=== PATIENT | male | born 1975 | race Caucasian/White ===

== ENCOUNTER 2017-12-15 15:10 | Emergency (ER) | payer BC, OTHER ==
[2017-12-15 15:22] VITALS: BP 139/89; PULSE 74; TEMP 97.6; BMI 29.8
--- NOTE | 2017-12-15 17:06 | PDOC ---
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 Patient states was on duty last night when his right hand twisted backwards causing him discomfort. Patient states was unable to get an x-ray done at his doctor since the machine was down and so decided to come to the ER for further evaluation. Patient now complaining of pain to the inner aspect of right wrist without weakness, radiation of pain, or previous injury to the affected area. Timing/Duration: other Severity: mild Associated Symptoms: reports: denies symptoms Past History - Travel Traveled outside of the country in the last 30 days: No - Past Medical History Allergies/Adverse Reactions: Allergies Allergy/AdvReac Type Severity Reaction Status Date / Time No Known Allergies Allergy Verified 12/15/17 15:19 Home Medications: Ambulatory Orders NK [No Known Home Medication] 12/15/17 COPD: No - Suicide/Smoking/Psychosocial Hx Smoking History: Never smoked Have you smoked in the past 12 months: No Information on smoking cessation initiated: No Hx Alcohol Use: No Drug/Substance Use Hx: No Substance Use Type: None Patient Lives Alone: No Lives with/in: spouse/SO Review of Systems - Review of Systems Able to Perform ROS?: Yes Constitutional: No: Symptoms Reported Musculoskeletal: Yes: Joint Pain (rt wrist). No: Joint Swelling Integumentary: No: Symptoms Reported Neurological: No: Symptoms reported *Physical Exam - Vital Signs Last Vital Signs Temp Pulse Resp BP Pulse Ox 97.6 F 74 18 139/89 100 12/15/17 15:19 12/15/17 15:19 12/15/17 15:19 12/15/17 15:19 12/15/17 15:19 - Physical Exam General Appearance: Yes: Nourished, Appropriately Dressed. No: Apparent Distress HEENT: positive: EOMI, HEBERT, TMs Normal, Pharynx Normal. 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 Patient ordered for right wrist x-ray. 12/15/17 17:42 X-ray shows no signs of dislocation, fracture subluxation. Patient be discharged home with recommendations to use brace or Paulo wrap or the brace during the day but remove at night *DC/Admit/Observation/Transfer Diagnosis at time of Disposition: Injury of wrist, right - Discharge Dispostion Disposition: HOME Condition at time of disposition: Good - Referrals Referrals: Perry Salguero MD [Staff Physician] - - Patient Instructions Printed Discharge Instructions: DI for Wrist Sprain Additional Instructions: You are discharged home with recommendations to use brace or Paulo wrap or the brace during the day but remove at night. Follow-up with referred orthopedist if pain continues greater than 5 days. - Post Discharge Activity
== END 2017-12-15 17:50 | disposition home or self-care (01) ==
LOC: JERFT 15:10
DX: S63.502A Unspecified sprain of left wrist, initial encounter (principal); W01.0XXA Fall on same level from slipping, tripping and stumbling without subsequent striking against object, initial encounter; Y93.89 Activity, other specified; Y92.89 Other specified places as the place of occurrence of the external cause; Y99.0 Civilian activity done for income or pay
CPT/HCPCS: 73110-TC-RT; 99281-25

== ENCOUNTER 2020-12-04 08:09 | Emergency (ER) | payer BC, OTHER ==
[2020-12-04 08:54] VITALS: TEMP 98.2; BMI 29.8
[2020-12-04] MEDS ORDERED: SODIUM CHLORIDE 1,000 ML IV STA (09:32)
[2020-12-04] MEDS ORDERED: ACETAMINOPHEN 1000 MG/100 ML BAG IVPB ONE (09:32)
[2020-12-04] MEDS ORDERED: ACETAMINOPHEN INJECTION 100 ML IVPB ONE (09:43)
[2020-12-04 10:21] LABS: BASO % 0.7 % (0-2.0); HEMOGLOBIN 15.4 GM/dL (11.7-16.9); LYMPH % 25.2 % (8-40); MCH 27.9 pg (25.7-33.7); MCHC 33.5 g/dl (32.0-35.9); MEAN CELL VOLUME 83.1 fl (80-96); MEAN PLT VOLUME 9.2 fl (7.5-11.1); MONO % 7.9 % (3.8-10.2); NEUT % 66.2 % (42.8-82.8); PLATELET COUNT 203 K/MM3 (134-434); RBC 5.54 M/mm3 (4.00-5.60); RDW 13.9 % (11.9-15.9); WHITE BLOOD COUNT 6.3 K/mm3 (4.0-10.0)
[2020-12-04 10:51] LABS: ALBUMIN 4.1 g/dl (3.4-5.0); BLOOD UREA NITROGEN 17.9 mg/dL (7-18); CALCIUM 8.8 mg/dL (8.5-10.1)
[2020-12-04 10:55] LABS: CREATININE 1.4 mg/dL (0.55-1.3)
[2020-12-04 10:56] LABS: BILIRUBIN,TOTAL 0.4 mg/dL (0.2-1); TOT PROT 8.3 g/dl (6.4-8.2)
[2020-12-04 12:00] VITALS: BP 100/62; PULSE 67
== END 2020-12-04 12:43 | disposition home or self-care (01) ==
LOC: JER 08:09
PROC: 3E0333Z Introduction of Anti-inflammatory into Peripheral Vein, Percutaneous Approach (ICD-10-PCS; principal; 2020-12-04)
PROC: 3E0337Z Introduction of Electrolytic and Water Balance Substance into Peripheral Vein, Percutaneous Approach (ICD-10-PCS; 2020-12-04)
DX: U07.1 COVID-19 (principal); R19.7 Diarrhea, unspecified
CPT/HCPCS: 36415; 80053; 85025; 87426; 99284-25; J0131

== ENCOUNTER 2020-12-09 07:24 | Emergency (ER) | payer BC, OTHER ==
[2020-12-09 07:31] VITALS: BP 124/86; PULSE 88; TEMP 98; BMI 29.8
== END 2020-12-09 08:33 | disposition home or self-care (01) ==
LOC: JER 07:24
DX: U07.1 COVID-19 (principal)
CPT/HCPCS: 71046-TC-FY; 99283-25

== ENCOUNTER 2021-11-09 12:24 | Emergency (ER) | payer BC, OTHER ==
[2021-11-09 12:45] VITALS: BMI 29.8
[2021-11-09] MEDS ORDERED: ACETAMINOPHEN 1000 MG/100 ML VIAL IVPB ONE (13:12)
[2021-11-09] MEDS ORDERED: SODIUM CHLORIDE 0.9% 500 ML INFUS.BAG IV ONE (13:12)
[2021-11-09] MEDS ORDERED: ACETAMINOPHEN INJECTION 100 ML IVPB ONE (13:16)
[2021-11-09 13:43] LABS: HEMATOCRIT 46.2 % (35.4-49); HEMOGLOBIN 15.4 GM/dL (11.7-16.9); MCH 27.4 pg (25.7-33.7); MCHC 33.2 g/dl (32.0-35.9); MEAN CELL VOLUME 82.4 fl (80-96); MEAN PLT VOLUME 8.7 fl (7.5-11.1); PLATELET COUNT 335 10^3/uL (134-434); RBC 5.61 M/mm3 (4.00-5.60); RDW 13.9 % (11.9-15.9); WHITE BLOOD COUNT 14.8 K/mm3 (4.0-10.0)
[2021-11-09 14:01] LABS: BLOOD UREA NITROGEN 17.6 mg/dL (7-18); CO2 18 mmol/L (21-32); GLUCOSE,RANDOM 143 mg/dL (74-106)
[2021-11-09] MEDS ORDERED: morphine SULFATE 4 MG/ML VIAL ONE (14:01)
[2021-11-09 14:02] LABS: ANION GAP 14 MMOL/L (8-16); CHLORIDE 110 mmol/L (98-107); SODIUM 141 mmol/L (136-145)
[2021-11-09 14:03] LABS: CALCIUM 9.7 mg/dL (8.5-10.1)
[2021-11-09 14:04] LABS: ALBUMIN 4.4 g/dl (3.4-5.0)
[2021-11-09 14:05] LABS: SGOT/AST 41 U/L (15-37)
[2021-11-09] MEDS ORDERED: morphine CARPU-JECT 4 MG/1 ML DISP.SYRIN IVPUSH ONE (14:05)
[2021-11-09] MEDS ORDERED: SODIUM CHLORIDE 1,000 ML IV STA ×2 (14:05→16:47)
[2021-11-09 14:06] LABS: CREATININE 1.5 mg/dL (0.55-1.3); TOT PROT 8.5 g/dl (6.4-8.2)
[2021-11-09 14:07] LABS: ALK PHOS 90 U/L (45-117); SGPT/ALT 93 U/L (13-61)
[2021-11-09 14:23] LABS: ANISOCYTOSIS 0; HELMET CELLS 0; HOWELL-JOLLY BODIES 0; MACROCYTOSIS 0; OVALOCYTE 0; PLATELET ESTIMATE NORMAL; ROULEAU 0; SICKELED CELLS 0; TARGET CELLS 0; TEAR DROP CELLS 0; TOXIC GRANULATION 0
[2021-11-09] MEDS ORDERED: NITROGLYCERIN SUBLINGUAL 1/150 0.4 MG TAB SL ONE (17:07)
[2021-11-09] MEDS ORDERED: ASPIRIN 325 MG TABLET PO ONE (17:07)
[2021-11-09] MEDS ORDERED: ASPIRIN 81 MG CHEWABLE TABLETS ONE (17:13)
[2021-11-09] MEDS ORDERED: NITROGLYCERIN SUBLINGUAL 1/150 0.4 MG TAB ONE (17:14)
[2021-11-09] MEDS ORDERED: ATORVASTATIN CA 80 MG TABLET (FP) ONE (17:55)
[2021-11-09] MEDS ORDERED: HEPARIN NA (PORCINE) 5,000 UNITS/ML 1ML VIAL ONE ×2 (17:55→18:19)
[2021-11-09] MEDS ORDERED: HEPARIN NA (PORCINE) 5,000 UNITS/ML 1ML VIAL IVPUSH ONE (18:00)
[2021-11-09] MEDS ORDERED: CLOPIDOGREL BISULFATE 300 MG TABLET PO ONE (18:01)
[2021-11-09] MEDS ORDERED: ATORVASTATIN CA 80 MG TABLET (FP) PO ONE (18:01)
[2021-11-09] MEDS ORDERED: CLOPIDOGREL BISULFATE 300 MG TABLET ONE (18:02)
[2021-11-09] MEDS ORDERED: HEPARIN NA (PORCINE) 5,000 UNITS/ML 1ML VIAL IVPUSH PRN ×2 (18:02)
[2021-11-09] MEDS ORDERED: HEPARIN - 25,000 UNIT in SODIUM CHLORIDE 495 ML IV SCH (18:15)
[2021-11-09] MEDS ORDERED: HEPARIN INFUSION - 25,000 UNITS/500 ML INFUS.BAG IVPB ONE (18:19)
[2021-11-10] MEDS ORDERED: morphine CARPU-JECT 2 MG/1 ML DISP.SYRIN IVPUSH ONE (00:20)
[2021-11-10 01:26] VITALS: BP 138/96; PULSE 108; TEMP 98.1
[2021-11-10 01:32] LABS: INR 1.08 (0.83-1.09); PROTHROMBIN TIME (PATIENT) 12.1 SEC (9.7-13.0)
[2021-11-10 01:35] LABS: ACTIVATED PTT 30.5 SECONDS (25.2-36.5)
== END 2021-11-10 01:26 | disposition short-term general hospital (02) ==
LOC: JER 12:24
PROC: 3E0333Z Introduction of Anti-inflammatory into Peripheral Vein, Percutaneous Approach (ICD-10-PCS; principal; 2021-11-09)
PROC: 3E033GC Introduction of Other Therapeutic Substance into Peripheral Vein, Percutaneous Approach (ICD-10-PCS; 2021-11-09)
PROC: 3E033GC Introduction of Other Therapeutic Substance into Peripheral Vein, Percutaneous Approach (ICD-10-PCS; 2021-11-09)
PROC: 3E033GC Introduction of Other Therapeutic Substance into Peripheral Vein, Percutaneous Approach (ICD-10-PCS; 2021-11-09)
PROC: 3E033NZ Introduction of Analgesics, Hypnotics, Sedatives into Peripheral Vein, Percutaneous Approach (ICD-10-PCS; 2021-11-09)
PROC: 3E033NZ Introduction of Analgesics, Hypnotics, Sedatives into Peripheral Vein, Percutaneous Approach (ICD-10-PCS; 2021-11-09)
PROC: 3E0337Z Introduction of Electrolytic and Water Balance Substance into Peripheral Vein, Percutaneous Approach (ICD-10-PCS; 2021-11-09)
PROC: 3E0337Z Introduction of Electrolytic and Water Balance Substance into Peripheral Vein, Percutaneous Approach (ICD-10-PCS; 2021-11-09)
DX: R10.84 Generalized abdominal pain (principal); I21.4 Non-ST elevation (NSTEMI) myocardial infarction
CPT/HCPCS: 36415; 71045-TC-FY; 71275-TC; 74174-TC; 80053; 82550; 82553; 82962; 83605; 83690; 84484; 85025; 85610; 85730; 93005; 93010; 99285-25; C9803; J0131; J1644; Q9967; U0003; U0005